=== PATIENT | female | born 1965 | race Caucasian/White ===

== ENCOUNTER → 2017-11-02 | Outpatient (CLI) | payer OTHER ==
[2017-11-02 16:08] LABS: ALBUMIN 4.9 gm/dL (3.5-5.0); BILIRUBIN,TOTAL 0.5 mg/dL (0.0-1.0); CALCIUM 10.2 mg/dL (8.4-10.2); CREATININE, serum 0.97 mg/dL (0.52-1.25); POTASSIUM 4.6 mmol/L (3.4-5.0); TOTAL PROTEIN 7.9 gm/dL (6.4-8.2)
[2017-11-02 16:10] LABS: BASO # 0.1 (0.0-0.2); BASO % 0.6 % (0.0-2.0); EOS # 0.3 (0.0-0.7); EOS % 1.8 % (0-4.0); GRAN # 10.4 (1.4-6.5); GRAN % 73.8 % (42.2-75.2); HEMATOCRIT 40.7 % (37.0-47.0); HEMOGLOBIN 12.5 g/dl (12.5-16.0); LYMPH # 2.7 (1.2-3.4); LYMPH % 18.8 % (20.0-51.0); MEAN CELL VOLUME 81 fl (80.0-100.0); MEAN CORPUSCULAR HEMOGLOBIN 25 pg (27.0-31.0); MEAN CORPUSCULAR HGB CONC 31 g/dl (33.0-37.0); MEAN PLATELET VOLUME 10.4 fl (7.4-10.4); MONO # 0.6 (0.1-0.6); MONO % 4.4 % (1.7-9.3); PLATELET COUNT 344 K/mm3 (130-400); RED BLOOD COUNT 5.05 M/mm3 (4.10-5.30)
[2017-11-02 16:37] LABS: TSH w REFLEX 1.13 uIU/mL (0.465-4.680)
== END ==
LOC: COL.LAB 15:33
PROVIDERS: Family Medicine
DX: Z13.220 Encounter for screening for lipoid disorders (principal); Z13.1 Encounter for screening for diabetes mellitus

== ENCOUNTER 2018-01-12 10:30 | Outpatient (RCR) | payer OTHER | END 2018-02-21 | disposition home or self-care (01) | LOC: MKS.ESL.PT | DX: M54.5 Low back pain (principal); G89.29 Other chronic pain ==

== ENCOUNTER → 2019-03-07 | Outpatient (CLI) | payer BC | LOC: COL.RAD 09:15 | DX: I67.9 Cerebrovascular disease, unspecified (principal); H93.19 Tinnitus, unspecified ear | CPT/HCPCS: Q9967 ==

== ENCOUNTER → 2020-07-05 | Outpatient (CLI) | payer BC ==
[~2020-07-05] MED LIST: AMERGE 2.5MG T2.5 MG PO; AMITRIPTYLINE H25 M1 PO; CARDIZEM CD 18180 MG PO; CRESTOR 10MG10 MG PO; CYMBALTA 60MG60 MG PO; DESYREL 100MG100 MG PO; FLEXERIL5 MG PO; GLUCOPHAGE500 MG/TAB PO; LOPID 600M600 MG/TAB PO; TENORMIN100 MG PO; ZESTRIL30 MG PO; ZOFRAN 4MG T4 MG/TAB PO; ZYPREXA 5MG5 MG PO; [UNRECOGNIZED DRUG - OTHER] IH
== END ==
LOC: COL.RAD 14:06
DX: K21.9 Gastro-esophageal reflux disease without esophagitis (principal)

== ENCOUNTER 2020-07-18 10:00 | Outpatient (RCR) | payer BC | END 2020-08-28 08:48 | disposition home or self-care (01) | LOC: WSC 10:00 | DX: M48.061 Spinal stenosis, lumbar region without neurogenic claudication (principal); M54.41 Lumbago with sciatica, right side ==

== ENCOUNTER → 2020-07-23 | Outpatient (CLI) | payer BC | LOC: MC.RAD 13:35 | DX: Z12.31 Encounter for screening mammogram for malignant neoplasm of breast (principal) ==

== ENCOUNTER 2020-08-23 14:30 | Outpatient (RCR) | payer BC | END 2020-08-28 08:49 | disposition home or self-care (01) | LOC: WSST 14:30 | DX: R13.12 Dysphagia, oropharyngeal phase (principal); R49.0 Dysphonia; K21.9 Gastro-esophageal reflux disease without esophagitis ==

== ENCOUNTER → 2021-06-19 | Outpatient (CLI) | payer BC | LOC: COL.RAD 11:06 | DX: D25.9 Leiomyoma of uterus, unspecified (principal); N84.1 Polyp of cervix uteri ==

== ENCOUNTER 2022-11-15 14:51 | Inpatient (IN) | payer BC ==
[2022-11-15] VITALS (324 sets, daily range): BP systolic 101–134; BP diastolic 67–99; PULSE 111; TEMP 98.4; O2SAT 79–100
[~2022-11-15] VITALS: Ht 154.9 cm; Wt 99.2 kg
[2022-11-15 15:24] LABS: MEAN CELL VOLUME 97 fl (80.0-100.0); MEAN CORPUSCULAR HGB CONC 31 g/dl (33.0-37.0); MEAN PLATELET VOLUME 10.9 fl (7.4-10.4); PLATELET COUNT 281 K/mm3 (130-400); RED BLOOD COUNT 3.13 M/mm3 (4.10-5.30); REDCELL DISTRIBUTION WIDTH-CV 14.1 % (11.5-14.5)
[2022-11-15 15:28] LABS: HEMATOCRIT 30.2 % (37.0-47.0); HEMOGLOBIN 9.4 g/dl (12.5-16.0); MEAN CORPUSCULAR HEMOGLOBIN 30 pg (27-31)
[2022-11-15 15:42] LABS: LIPASE 14 U/L (8-78)
[2022-11-15 16:01] LABS: TROPONIN-I < 0.010 ng/mL (0.00-0.033); TSH w REFLEX 0.649 uIU/mL (0.350-4.940)
[2022-11-15 17:25] LABS: BAND 34 % (0-10); LYMPHOCYTE 10 % (20.0-51.0); NEUTROPHILS 54 % (42.0-75.2); PLATELET ESTIMATE NORMAL (NORMAL)
[2022-11-15 17:42] LABS: ALBUMIN 3.2 gm/dL (3.5-5.0); BILIRUBIN,TOTAL 0.4 mg/dL (0.2-1.2); CALCIUM 9.7 mg/dL (8.4-10.2); CREATININE, serum 2.91 mg/dL (0.57-1.11); POTASSIUM 5.6 mmol/L (3.5-4.5); TOTAL PROTEIN 6.3 gm/dL (6.2-8.1)
[2022-11-15] MEDS ORDERED: AJOVY225 MG/1.5 SQ (18:43)
[2022-11-15] MEDS ORDERED: RT ADVAIR 228 DISKUS IH (18:44)
[2022-11-15] MEDS ORDERED: ZETIA 10MG TAB10 MG PO (18:45)
[2022-11-15] MEDS ORDERED: FERROUS SU325 MG/TAB PO (18:45)
[2022-11-15] MEDS ORDERED: PROAIR HFA0.09 MG/AC IH (18:46)
[2022-11-15] MEDS ORDERED: PRIL40 PO (18:46)
[2022-11-15 19:46] LABS: COLLECTION METHOD CLEAN CATCH
[2022-11-15 19:53] LABS: URINE APPEARANCE Hazy (CLEAR/HAZY); URINE BLOOD TRACE-INTACT (NEGATIVE); URINE COLOR Yellow (YELLOW); URINE GLUCOSE Negative (NEGATIVE); URINE KETONE TRACE (NEGATIVE); URINE NITRATE Negative (NEGATIVE); URINE PROTEIN(semi-quant) 1+ (NEGATIVE); URINE UROBILINOGEN 0.2 E.U/dL (0.2-1.0)
[2022-11-15 20:05] LABS: MUCOUS Present (NOT PRESENT); SQUAMOUS EPITHELIAL 0-2 /hpf (0-10); URINE BACTERIA None Seen /hpf (NONE SEEN)
[2022-11-16] VITALS (671 sets, daily range): BP systolic 102–152; BP diastolic 62–89; PULSE 91–118; TEMP 97.8–98.8; O2SAT 48–100
[2022-11-16 06:00] LABS: MEAN CELL VOLUME 95 fl (80.0-100.0); MEAN CORPUSCULAR HGB CONC 32 g/dl (33.0-37.0); MEAN PLATELET VOLUME 10.5 fl (7.4-10.4); PLATELET COUNT 223 K/mm3 (130-400); RED BLOOD COUNT 2.81 M/mm3 (4.10-5.30)
[2022-11-16 06:03] LABS: HEMATOCRIT 26.7 % (37.0-47.0); HEMOGLOBIN 8.6 g/dl (12.5-16.0); MEAN CORPUSCULAR HEMOGLOBIN 31 pg (27-31)
[2022-11-16 06:15] LABS: CALCIUM 8.5 mg/dL (8.4-10.2); CREATININE, serum 1.85 mg/dL (0.57-1.11); POTASSIUM 5.1 mmol/L (3.5-4.5)
[2022-11-16 06:27] LABS: BAND 41 % (0-10); HYPOCHROMIA 1+; LYMPHOCYTE 7 % (20.0-51.0); METAMYELOCYTE 2 % (0-0); NEUTROPHILS 46 % (42.0-75.2); PLATELET ESTIMATE NORMAL (NORMAL)
[2022-11-16 06:28] LABS: BURR CELLS 1+; TEAR DROP CELLS 1+
[2022-11-17 02:56] VITALS: BP 127/76; PULSE 95; TEMP 98.2
[2022-11-17 05:11] LABS: MEAN CELL VOLUME 94 fl (80.0-100.0); MEAN CORPUSCULAR HGB CONC 32 g/dl (33.0-37.0); MEAN PLATELET VOLUME 10.7 fl (7.4-10.4); PLATELET COUNT 284 K/mm3 (130-400); RED BLOOD COUNT 2.79 M/mm3 (4.10-5.30); REDCELL DISTRIBUTION WIDTH-CV 13.7 % (11.5-14.5)
[2022-11-17 05:12] LABS: HEMATOCRIT 26.3 % (37.0-47.0); HEMOGLOBIN 8.5 g/dl (12.5-16.0); MEAN CORPUSCULAR HEMOGLOBIN 30 pg (27-31)
[2022-11-17 05:23] LABS: CALCIUM 9.2 mg/dL (8.4-10.2); CREATININE, serum 1.25 mg/dL (0.57-1.11); POTASSIUM 4.5 mmol/L (3.5-4.5)
[2022-11-17 05:26] LABS: BAND 24 % (0-10); HYPOCHROMIA 1+; LYMPHOCYTE 9 % (20.0-51.0); NEUTROPHILS 67 % (42.0-75.2); PLATELET ESTIMATE NORMAL (NORMAL)
[2022-11-17 08:01] VITALS: BP 117/73; PULSE 100; TEMP 98
[2022-11-17 11:32] VITALS: BP 112/66; PULSE 98; TEMP 98.1
[2022-11-17 15:16] VITALS: BP 134/85; PULSE 105; TEMP 98.1
[2022-11-17 19:23] VITALS: BP 137/78; PULSE 103; TEMP 98
[2022-11-18 01:16] VITALS: BP 134/66; PULSE 91; TEMP 97.8
[2022-11-18 03:19] VITALS: BP 128/64; PULSE 87; TEMP 98.8
[2022-11-18 06:44] LABS: MEAN CELL VOLUME 92 fl (80.0-100.0); MEAN CORPUSCULAR HGB CONC 32 g/dl (33.0-37.0); MEAN PLATELET VOLUME 10.6 fl (7.4-10.4); PLATELET COUNT 310 K/mm3 (130-400); RED BLOOD COUNT 3.01 M/mm3 (4.10-5.30); REDCELL DISTRIBUTION WIDTH-CV 13.6 % (11.5-14.5)
[2022-11-18 06:46] LABS: HEMATOCRIT 27.8 % (37.0-47.0); MEAN CORPUSCULAR HEMOGLOBIN 30 pg (27-31)
[2022-11-18 06:50] LABS: CREATININE, serum 0.93 mg/dL (0.57-1.11); MAGNESIUM 1.7 mg/dL (1.6-2.6); POTASSIUM 4.2 mmol/L (3.5-4.5)
[2022-11-18 07:23] LABS: BAND 12 % (0-10); EOSINOPHIL 1 % (0-4); LYMPHOCYTE 16 % (20.0-51.0); METAMYELOCYTE 1 % (0-0); NEUTROPHILS 68 % (42.0-75.2); PLATELET ESTIMATE NORMAL (NORMAL)
[2022-11-18 07:28] VITALS: BP 130/73; PULSE 93; TEMP 98.8
[2022-11-18 11:25] VITALS: BP 130/77; PULSE 88; TEMP 98.3
[2022-11-18 15:14] VITALS: BP 134/76; PULSE 92; TEMP 98.1
[2022-11-18 19:55] VITALS: BP 135/85; PULSE 86; TEMP 99.4
[2022-11-19 00:07] VITALS: BP 145/81; PULSE 76; TEMP 99.1
[2022-11-19 04:13] VITALS: BP 145/75; PULSE 82; TEMP 99.3
[2022-11-19 06:59] VITALS: BP 127/68; PULSE 85; TEMP 99.3
[2022-11-19 07:33] LABS: MEAN CELL VOLUME 90 fl (80.0-100.0); MEAN CORPUSCULAR HGB CONC 33 g/dl (33.0-37.0); MEAN PLATELET VOLUME 10.3 fl (7.4-10.4); PLATELET COUNT 303 K/mm3 (130-400); RED BLOOD COUNT 3.18 M/mm3 (4.10-5.30); REDCELL DISTRIBUTION WIDTH-CV 13.3 % (11.5-14.5)
[2022-11-19 07:34] LABS: CALCIUM 9.8 mg/dL (8.4-10.2); CREATININE, serum 0.79 mg/dL (0.57-1.11); HEMATOCRIT 28.5 % (37.0-47.0); HEMOGLOBIN 9.4 g/dl (12.5-16.0); MEAN CORPUSCULAR HEMOGLOBIN 30 pg (27-31)
[2022-11-19 08:15] LABS: BAND 12 % (0-10); LYMPHOCYTE 15 % (20.0-51.0); METAMYELOCYTE 3 % (0-0); NEUTROPHILS 67 % (42.0-75.2)
[2022-11-19 08:16] LABS: PLATELET ESTIMATE NORMAL (NORMAL)
[2022-11-19] MEDS ORDERED: AMOXICILLIN 8751 TAB PO (09:18)
[2022-11-19] MEDS ORDERED: MEDROL 4MG DOSPA4 MG PO (09:19)
== END 2022-11-19 12:25 | disposition home or self-care (01) | DRG 871 ==
LOC: COL.ER 14:51 → MEDICAL 16:18 → ICU 16:18 → EDBEDREQ 18:13 → MEDICAL 11-16 14:46
PROVIDERS: Emergency Medicine; Internal Medicine; Physician Assistant; ADMIT Student in an Organized Health Care Education/Training Program
PROC: 02HV33Z Insertion of Infusion Device into Superior Vena Cava, Percutaneous Approach (ICD-10-PCS; principal; 2022-11-15)
DX: A40.3 Sepsis due to Streptococcus pneumoniae (principal); J18.9 Pneumonia, unspecified organism; R65.21 Severe sepsis with septic shock; N17.9 Acute kidney failure, unspecified; E87.20 Acidosis, unspecified; J45.909 Unspecified asthma, uncomplicated; F10.90 Alcohol use, unspecified, uncomplicated; Z20.822 Contact with and (suspected) exposure to COVID-19; E78.5 Hyperlipidemia, unspecified; E87.5 Hyperkalemia; D64.9 Anemia, unspecified; F41.9 Anxiety disorder, unspecified; I34.0 Nonrheumatic mitral (valve) insufficiency; I12.9 Hypertensive chronic kidney disease with stage 1 through stage 4 chronic kidney disease, or unspecified chronic kidney disease; E11.22 Type 2 diabetes mellitus with diabetic chronic kidney disease; N18.9 Chronic kidney disease, unspecified; G43.909 Migraine, unspecified, not intractable, without status migrainosus; F32.A Depression, unspecified; I95.9 Hypotension, unspecified; Z88.8 Allergy status to other drugs, medicaments and biological substances; Z79.84 Long term (current) use of oral hypoglycemic drugs; Z23 Encounter for immunization
CPT/HCPCS: A4314; J0692; J0696; J1650; J2405; J2930; J3370; J7030; J7040; J7050; J7060; J7512

== ENCOUNTER → 2022-11-21 | Outpatient (CLI) | payer BC ==
[~2022-11-21] MED LIST changes: +AJOVY225 MG/1.5 SQ; +AMOXICILLIN 8751 TAB PO; +FERROUS SU325 MG/TAB PO; +MEDROL 4MG DOSPA4 MG PO; +PRIL40 PO; +PROAIR HFA0.09 MG/AC IH; +RT ADVAIR 228 DISKUS IH; +ZETIA 10MG TAB10 MG PO
[2022-11-21 11:05] LABS: HEMOGLOBIN 11.1 g/dl (12.5-16.0); MEAN CELL VOLUME 91 fl (80.0-100.0); MEAN CORPUSCULAR HEMOGLOBIN 30 pg (27-31); MEAN CORPUSCULAR HGB CONC 33 g/dl (33.0-37.0); MEAN PLATELET VOLUME 9.9 fl (7.4-10.4); RED BLOOD COUNT 3.72 M/mm3 (4.10-5.30); REDCELL DISTRIBUTION WIDTH-CV 13.7 % (11.5-14.5)
[2022-11-21 11:12] LABS: HEMATOCRIT 33.7 % (37.0-47.0); PLATELET COUNT 483 K/mm3 (130-400)
[2022-11-21 11:16] LABS: ALBUMIN 3.4 gm/dL (3.5-5.0); BILIRUBIN,TOTAL 0.3 mg/dL (0.2-1.2); C-REACTIVE PROTEIN 2.85 mg/dL (0.00-0.50); CALCIUM 10.7 mg/dL (8.4-10.2); CREATININE, serum 0.99 mg/dL (0.57-1.11); POTASSIUM 4.7 mmol/L (3.5-4.5); TOTAL PROTEIN 7.8 gm/dL (6.2-8.1)
[2022-11-21 12:14] LABS: BAND 11 % (0-10); LYMPHOCYTE 12 % (20.0-51.0); METAMYELOCYTE 13 % (0-0); MYELOCYTE 6 % (0-0); NEUTROPHILS 53 % (42.0-75.2)
[2022-11-21 12:15] LABS: PLATELET ESTIMATE INCREASED (NORMAL); POLYCHROMASIA 1+
[2022-11-22 07:45] LABS: PATHOLOGY DIFF REVIEW OK
== END ==
LOC: COL.LAB 10:27
PROVIDERS: Family Medicine
DX: J18.9 Pneumonia, unspecified organism (principal)

== ENCOUNTER → 2024-03-16 | Outpatient (CLI) | payer BC ==
[~2024-03-16] MED LIST changes: +ALBUTEROL0.83 MG/ML IH; +ASPIRIN 81M81 MG/TA2 PO; +CARDIZEM CD 24240 MG PO; +CEPHALEXIN500 M1 PO; +CORDARONE200 MG/TAB PO; +COZAAR 50MG50 MG/TAB PO; +CRESTOR20 MG PO; +GLUCOPHAGE1000 MG PO; +IRON TABLETS325 MG PO; +OXYGEN NASAL.CANN; +PREDNISONE20 MG PO; +RT ADVAIR HFA 2312 G IH; +TESSALON PERLE200 MG PO; +ZYPREXA10 MG PO
== END ==
LOC: MC.RAD 13:23
DX: Z12.31 Encounter for screening mammogram for malignant neoplasm of breast (principal)